=== PATIENT | male | born 1985 | race Caucasian/White ===

== ENCOUNTER 2018-09-15 09:56 | Emergency (ER) | payer OTHER, SELFPAY ==
[2018-09-15 10:01] VITALS: BP 118/59; PULSE 67; RESP 14; TEMP 36.4; O2SAT 98; BMI 23.0
--- NOTE | 2018-09-15 11:32 | ED.URI ---
HPI - URI/Sore Throat General Chief Complaint: Upper Respiratory Symptoms Stated Complaint: SORE THROAT Time Seen by Provider: 09/15/18 11:18 Source: patient Mode of arrival: ambulatory Limitations: no limitations History of Present Illness HPI Narrative: 32-year-old male comes to the emergency department with complaint of sore throat for about 4 days. States that it feels like a sharp pain in the back of his throat. Patient has not any fevers, no cold cough or congestion. No myalgias or body aches. No nausea no vomiting no other GI or urinary symptoms. Patient came in today because he has a 2-month-old infant at home and was concerned that if he had strep he could give it to his infant. Patient is asking to leave because his request negative and he does not want a wait he has to go to work. Related Data Home Medications Medication Instructions Recorded Confirmed multivitamin with minerals [Daily 1 tab PO DAILY 09/15/18 09/15/18 Multivitamin-Minerals] Allergies Allergy/AdvReac Type Severity Reaction Status Date / Time No Known Drug Allergies Allergy Verified 09/15/18 10:04 Review of Systems Review of Systems ROS Unobtainable: All systems reviewed & are unremarkable except as noted in HPI and below Constitutional Denies chills, Denies fever(s), Denies lethargy and Denies weakness ENT Ears, Nose, Mouth, and Throat: Denies hoarseness, Denies nasal congestion, Denies neck pain, Reports sore throat, Denies throat swelling and Denies tongue swelling Cardiovascular Denies chest pain, Denies dyspnea and Denies dyspnea on exertion Respiratory Denies chest congestion, Denies cough, Denies excessive phlegm production, Denies dyspnea, Denies dyspnea on exertion and Denies wheezing Gastrointestinal Gastrointestinal: Denies abdominal pain, Denies change in bowel habits, Denies diarrhea, Denies nausea and Denies vomiting Musculoskeletal Denies myalgias and Denies neck pain Integumentary/Breasts Denies rash Neurologic Denies weakness Allergic/Immunologic Denies throat swelling, Denies tongue swelling and Denies wheezing [facility] Social History Smoking Status: Never smoker Social History Smoking Status: Never smoker Exam Narrative Exam Narrative: GEN: well nourished, well appearing male, alert and oriented x 3, patient appears to be in no acute distress. HEENT: Atraumatic, pupils are equal round reactive to light, extraocular movements are intact, nares are clear, TMs are clear with no fluid, there is no conjunctival pallor. Throat is clear without any exudates, erythema, tonsillar enlargement or uvular deviation HEART: Regular rate and rhythm without murmur, clicks, rubs. LUNGS:Lungs clear to auscultation, no wheezes, rales, crackles, chest moves symmetrically ABD:bowel sounds normal, soft, non-tender, no guarding, rebound, rigidity, no masses noted, no hepatosplenomegaly MSCL: Non-tender, no muscle atrophy, muscles strength 5/5 upper and lower extremities, full range of motion, normal gait NEURO:CN 2-12 intact, sensation normal Initial Vital Signs Initial Vital Signs: Vital Signs Temperature 97.5 F L 09/15/18 10:01 Pulse Rate 67 09/15/18 10:01 Respiratory Rate 14 09/15/18 10:01 Blood Pressure 118/59 L 09/15/18 10:01 Pulse Oximetry 98 09/15/18 10:01 Course Vital Signs - 8 hr 09/15/18 10:01 Temperature 97.5 F L Pulse Rate 67 Respiratory Rate 14 Blood Pressure 118/59 L Pulse Oximetry 98 MDM - URI/Sore Throat Lab Data Attestation: I reviewed the patient's lab results. Point of Care Testing Rapid Strep A Negative MDM Narrative Medical decision making narrative: Patient did have his flu shot this year. Strep swab was negative. He does not meet any criteria that makes me suspicious that he had a false negative. We did discuss that if he has flu-like symptoms and describes those that he should get tested as he does have a 2-month-old infant at home. Discharge Plan Departure Patient Disposition: Home Clinical Impression: Pharyngitis Discharge Date/Time: 09/15/18 11:38 Interventions: ED Discharge Assessment Last Done: 09/15/18 11:37 Instructions: DI for Pharyngitis/Tonsillopharyngitis -- Adult Activity Restrictions/Additional Instructions: Follow up with primary if no improvement in 7-10 days. Take Tylenol and/or ibuprofen as needed for pain. If you have fevers, severe muscle aches, swelling of her face, throat, inability to breathe or high-pitched wheezing with breathing, or difficultly swallowing her own secretions/saliva, chest pain, shortness of breath, persistent vomiting, black bloody stools or other new concerning symptoms return to the emergency department. Prescriptions: No Action multivitamin with minerals [Daily Multivitamin-Minerals] Tablet 1 tab PO DAILY RF: 0
[2018-09-15 11:37] VITALS: BP 118/71; PULSE 61; RESP 12; O2SAT 99
== END 2018-09-15 11:38 | disposition home or self-care (01) ==
PROVIDERS: Emergency Provider Emergency Medicine
DX: J02.9 Acute pharyngitis, unspecified (principal)
CPT/HCPCS: 87880; 99282; 99283

== ENCOUNTER → 2020-11-03 17:29 | Outpatient (CLI) | payer OTHER, SELFPAY ==
--- NOTE | 2020-11-03 | DI.MRI.S_ITS ---
PROCEDURE: MR LUMBAR SPINE WO CON INDICATIONS: Dorsalgia, unspecified TECHNIQUE: Noncontrast sagittal T1 spin echo and T2 fast echo, sagittal STIR, axial T1 and T2 fast spin echo through the lumbar spine. In cases with scoliosis, additional coronal T2 fast spin echo may be performed. COMPARISON: None. FINDINGS: Image quality: Excellent. Alignment and Curvature: There is normal bony alignment. Bone Marrow: Marrow is of normal overall signal. No acute vertebral body compression fractures. Spinal Cord: Conus medullaris terminates at the L1 level. Visualized cord demonstrates normal signal and size. Paraspinous Soft Tissues: No paravertebral masses. T12-L1: Normal appearance. L1-L2: Normal appearance. L2-L3: Normal appearance. L3-L4: Normal appearance. L4-L5: Normal appearance. L5-S1: Loss of disc signal. Mild, diffuse disc bulge. Small central disc protrusion. No central stenosis. Mild bilateral neural foraminal narrowing. No neural compression. Fissure noted the posterior annulus. IMPRESSION: 1. Mild L5-S1 degenerative disc disease. 2. No central stenosis. 3. Mild bilateral L5-S1 neural foraminal narrowing. 4. No neural compression. 5. L5-S1 disc annulus fissure. Dictated by: Madeline Romero MD, PhD on 11/04/2020 at 8:43 Approved by: Madeline Romero MD, PhD on 11/04/2020 at 9:41
== END ==
PROVIDERS: Referring Provider Student in an Organized Health Care Education/Training Program; Visit Provider Student in an Organized Health Care Education/Training Program
DX: M51.37 Other intervertebral disc degeneration, lumbosacral region (principal); M48.07 Spinal stenosis, lumbosacral region; Q05.7 Lumbar spina bifida without hydrocephalus
CPT/HCPCS: 72148